=== PATIENT | male | born 1965 | race African-American/Black ===

== ENCOUNTER 2021-01-30 22:23 | Emergency (ER) | payer OTHER ==
[~2021-01-30] VITALS: Ht 167.6 cm; Wt 69.8 kg
[2021-01-31] MEDS ORDERED: CYCLOBENZAPRINE 10MG TABLET PO ONE (06:00)
[2021-01-31] MEDS ORDERED: KETOROLAC 60MG 2ML VIAL IM ONE (06:00)
[2021-01-31] MEDS ORDERED: LIDOCAINE 5% (LIDODERM) PATCH TD ONE (06:00)
[2021-01-31 07:15] VITALS: BP 136/79
[2021-01-31] MEDS ORDERED: CYCL-707 PO (07:40)
[2021-01-31] MEDS ORDERED: LIDO5DIS41 TOP (07:40)
[2021-01-31] MEDS ORDERED: IBUP-1022 PO (07:41)
[2021-01-31] MEDS ORDERED: **NOTE PATIENT COMMENT** MISC XX SCH (21:00)
== END 2021-01-31 07:47 | disposition home or self-care (01) ==
LOC: M ED 22:23
DX: M46.1 Sacroiliitis, not elsewhere classified (principal)
CPT/HCPCS: 96372; 99283; J1885

== ENCOUNTER → 2021-12-14 | Outpatient (REF) ==
[~2021-12-14] MED LIST: CYCL-707 PO; IBUP-1022 PO; LIDO5DIS41 TOP
== END ==
LOC: M PLAIMG 08:15
PROVIDERS: ATTEND Internal Medicine
DX: R06.02 Shortness of breath (principal)